=== PATIENT | female | born 1960 | race African-American/Black ===

== ENCOUNTER → 2016-12-02 | Outpatient (CLI) | payer BC ==
[2016-03-10 11:00] VITALS: BP 142/85
[~2016-12-02] MED LIST: LOSA1TAB16 PO; METO25TA9 PO
--- NOTE | 2016-12-03 11:10 | RAD ---
DATE: 12/02/2016 EXAM: DIGITAL SCREEN BILAT W/CAD HISTORY: Routine screening COMPARISON: 11/14/2015 This study was interpreted with the benefit of Computerized Aided Detection (CAD). FINDINGS: Breast Density: SCATTERED The breast parenchyma shows scattered fibroglandular densities. Breast parenchyma level B. There are no dominant suspicious masses, suspicious microcalcifications or evidence of architectural distortion. Nodules identified in the right and left breast in the outer upper quadrant grossly similar to prior exam. IMPRESSION: Benign findings BI-RADS CATEGORY: 2 BENIGN FINDING RECOMMENDED FOLLOW-UP: 12M 12 MONTH FOLLOW-UP PQRS compliance statement: Patient information was entered into a reminder system with a target due date 12/02/2017 for the next mammogram. Mammography is a sensitive method for finding small breast cancers, but it does not detect them all and is not a substitute for careful clinical examination. A negative mammogram does not negate a clinically suspicious finding and should not result in delay in biopsying a clinically suspicious abnormality. "Our facility is accredited by the [employer] Mammography [employer]."
== END | disposition home or self-care (01) ==
LOC: MAMMO 08:51
PROVIDERS: ATTEND Obstetrics & Gynecology
DX: Z12.31 Encounter for screening mammogram for malignant neoplasm of breast (principal)
CPT/HCPCS: G0202; 77067

== ENCOUNTER → 2017-07-03 | Outpatient (CLI) | payer BC ==
[2016-03-10 11:00] VITALS: BP 142/85
[~2017-07-03] MED LIST changes: +GADOBUTROL 10 MMOL/10 ML VIAL IV ONE; -LOSA1TAB16 PO; +LOSA1TAB19 PO; +METO-239 PO; -METO25TA9 PO
--- NOTE | 2017-07-03 10:15 | KCIC ---
MRI neck without and with contrast HISTORY: Soft tissue mass versus swelling for 2 months TECHNIQUE: Multiplanar, multi sequential pre and postcontrast MR imaging was performed of the neck. Contrast: 9 cc Gadavist COMPARISON: None FINDINGS: There is motion degradation. Markers were placed at site of concern, located posteriorly at the mid to inferior cervical levels. Underlying the markers, there is more exuberant fat not associated with discrete nodular enhancement. Discrete margins are not confidently identified on the axial images, suggestive of possible capsule as seen on the sagittal images with more localized focus of fat up to 2.1 cm AP by 2.9 cm cc. Note is made of medial deviation of the carotid arteries in the neck bilaterally greater on the right into the retropharyngeal region, most notable on the right at the C1-C2 through C5 levels, indentation upon the posterior right pharynx. Submandibular glands are symmetric in appearance. No significantly enlarged nodes are identified of the visualized, largest left lobe level 2 node 0.8 cm short axis dimension. IMPRESSION: 1. Area of concern posteriorly of the neck corresponds with area of more exuberant fat, possible partially encapsulated lipoma although difficult to identify margins throughout circumference. There is no nodular enhancement in this region. 2. There is medial deviation of the carotid arteries in the neck bilaterally greater on the right, indentation upon the posterior right pharynx. Electronically signed by: Cheng Trinh MD (07/03/2017 10:12 AM) [id number]
== END | disposition home or self-care (01) ==
LOC: KCIC MRI 07:58
PROVIDERS: ATTEND Specialist
DX: R22.1 Localized swelling, mass and lump, neck (principal)
CPT/HCPCS: 70543; A9585

== ENCOUNTER → 2017-07-17 | Day surgery (SDC) | payer BC ==
[~2017-07-17] MED LIST changes: +DEXAMETHASONE SOD PHOS 20 MG/5 ML VIAL.; -GADOBUTROL 10 MMOL/10 ML VIAL IV ONE; +GLYCOPYRROLATE 1 MG/5 ML VIAL.; +HYDROcodone/APAP 5/325MG 1 TAB TABLET PO; +HYDROmorphone 2 MG/ML VIAL IV; +LIDOCAINE 1% PF 2 ML VIAL. ID; +LIDOCAINE 1% PF 5 ML VIAL.; -LOSA1TAB19 PO; -METO-239 PO; +MORPHINE SULFATE 2 MG/ML DISP.SYRIN. IV; +NEOSTIGMINE METHYLSULFATE 5 MG/5 ML SYRINGE.; +ONDANSETRON PF 4 MG/2 ML VIAL.; +PROCHLORPERAZINE 10 MG/2 ML VIAL. IV; +PROPOFOL 20 ML IV; +ROCURONIUM 50 MG/5 ML VIAL.; +SEVOFLURANE 61 TO 120 MINUTES. IH; +fentaNYL PF VIAL 100 MCG/2 ML VIAL; +fentaNYL PF VIAL 100 MCG/2 ML VIAL IV; +fentaNYL PF VIAL 250 MCG/5 ML VIAL
[2017-07-17] MEDS: IV RINGERS,LACTATED 1000ML 1,000 ML IV (09:17)
[2017-07-17 09:19] LABS: ADD MAN DIFF? NO
[2017-07-17 09:25] LABS: BASO % 1 % (0-3); EOS % 2 % (0-3); HEMATOCRIT 43.4 % (36.0-47.0); HEMOGLOBIN 14.3 g/dL (12.0-15.5); LYMPH # 2.1 x10^3/uL (1.0-4.8); LYMPH % 35 % (24-48); MEAN CORPUSCULAR HEMOGLOBIN 29 pg (25-35); MEAN CORPUSCULAR HGB CONC 33 g/dL (31-37); MEAN CORPUSCULAR VOLUME 87 fL (79-100); MONO % 8 % (0-9); NEUT % 54 % (31-73); PLATELET COUNT 297 x10^3/uL (140-400); RED BLOOD COUNT 4.99 x10^6/uL (3.50-5.40); RED CELL DISTRIBUTION WIDTH 14.6 % (11.5-14.5); WHITE BLOOD COUNT 6.1 x10^3/uL (4.0-11.0)
[2017-07-17 09:49] LABS: ANION GAP 9 (6-14); BLOOD UREA NITROGEN 16 mg/dL (7-20); BUN/CREATININE RATIO 16 (6-20); CALCIUM 9.1 mg/dL (8.5-10.1); CARBON DIOXIDE 27 mmol/L (21-32); CHLORIDE 103 mmol/L (98-107); GFR 68.9; GLUCOSE 116 mg/dL (70-99); SODIUM 139 mmol/L (136-145)
[2017-07-17 09:55] LABS: ALBUMIN/GLOBULIN RATIO 0.9 (1.0-1.7); ALK PHOS 55 U/L (46-116); ALT (SGPT) 24 U/L (14-59); AST (SGOT) 30 U/L (15-37); TOTAL BILIRUBIN 0.6 mg/dL (0.2-1.0); TOTAL PROTEIN 8.4 g/dL (6.4-8.2)
[2017-07-17] MEDS: SCOPOLAMINE 1.5MG PATCH. TD (10:00)
[2017-07-17] MEDS: fentaNYL PF VIAL 100 MCG/2 ML VIAL IV (13:03)
[2017-07-17] MEDS: ONDANSETRON PF 4 MG/2 ML VIAL. IV (13:56)
== END | disposition home or self-care (01) ==
LOC: SURG 08:39
DX: D21.0 Benign neoplasm of connective and other soft tissue of head, face and neck (principal); I10 Essential (primary) hypertension; Z79.899 Other long term (current) drug therapy
CPT/HCPCS: 21554; 36415; 80053; 85025; 85610; 88304; J1100; J2405; J2704; J2710; J3010; J3490

== ENCOUNTER → 2018-01-08 | Outpatient (CLI) | payer BC | END | disposition home or self-care (01) | LOC: MAMMO 13:30 | DX: Z12.31 Encounter for screening mammogram for malignant neoplasm of breast (principal) | CPT/HCPCS: 77067 ==

== ENCOUNTER → 2019-01-20 | Outpatient (CLI) | payer BC ==
[2017-07-17 13:50] VITALS: BP 115/68
[~2019-01-20] MED LIST changes: -DEXAMETHASONE SOD PHOS 20 MG/5 ML VIAL.; -GLYCOPYRROLATE 1 MG/5 ML VIAL.; +HYDR-2761 PO; -HYDROcodone/APAP 5/325MG 1 TAB TABLET PO; -HYDROmorphone 2 MG/ML VIAL IV; -LIDOCAINE 1% PF 2 ML VIAL. ID; -LIDOCAINE 1% PF 5 ML VIAL.; +LOSA1TAB19 PO; +METO-239 PO; -MORPHINE SULFATE 2 MG/ML DISP.SYRIN. IV; -NEOSTIGMINE METHYLSULFATE 5 MG/5 ML SYRINGE.; -ONDANSETRON PF 4 MG/2 ML VIAL.; -PROCHLORPERAZINE 10 MG/2 ML VIAL. IV; -PROPOFOL 20 ML IV; -ROCURONIUM 50 MG/5 ML VIAL.; -SEVOFLURANE 61 TO 120 MINUTES. IH; -fentaNYL PF VIAL 100 MCG/2 ML VIAL; -fentaNYL PF VIAL 100 MCG/2 ML VIAL IV; -fentaNYL PF VIAL 250 MCG/5 ML VIAL
--- NOTE | 2019-01-20 10:33 | RAD ---
DATE: 01/20/2019 EXAM: MAMMO HAYLEE SCREENING BILATERAL HISTORY: Routine screening COMPARISON: 11/14/2015, 12/02/2016, and 01/08/2018 mammographic exams This study was interpreted with the benefit of Computerized Aided Detection (CAD). Breast Density: SCATTERED The breast parenchyma shows scattered fibroglandular densities. Breast parenchyma level B. FINDINGS: No dominant mass. No suspicious calcifications or distortion. Small mass at the left inner breast is stable. Benign-appearing lymph nodes again seen. IMPRESSION: Stable BI-RADS CATEGORY: 1 NEGATIVE RECOMMENDED FOLLOW-UP: 12M 12 MONTH FOLLOW-UP PQRS compliance statement: Patient information was entered into a reminder system with a target due date in one year for the next mammogram. Mammography is a sensitive method for finding small breast cancers, but it does not detect them all and is not a substitute for careful clinical examination. A negative mammogram does not negate a clinically suspicious finding and should not result in delay in biopsying a clinically suspicious abnormality. "Our facility is accredited by the [employer] Mammography [employer]."
== END | disposition home or self-care (01) ==
LOC: MAMMO 08:56
PROVIDERS: ATTEND Obstetrics & Gynecology
DX: Z12.31 Encounter for screening mammogram for malignant neoplasm of breast (principal); N63.20 Unspecified lump in the left breast, unspecified quadrant
CPT/HCPCS: 77063; 77067

== ENCOUNTER → 2020-02-22 | Outpatient (CLI) | payer BC ==
[2017-07-17 13:50] VITALS: BP 115/68
--- NOTE | 2020-02-23 16:37 | RAD ---
DATE: 02/22/2020 2:20 PM EXAM: MAMMO HAYLEE SCREENING BILATERAL HISTORY: Screening COMPARISON: 01/20/2019 Bilateral CC and MLO views of the breasts were performed. Bilateral breast tomosynthesis was performed in CC and MLO projections. This study was interpreted with the benefit of Computerized Aided Detection (CAD). FINDINGS: Breast Density: SCATTERED The breast parenchyma shows scattered fibroglandular densities. Breast parenchyma level B No suspicious masses, microcalcifications or architectural distortion is present to suggest malignancy in either breast. The visualized axillae are unremarkable. IMPRESSION: No mammographic evidence of malignancy. BI-RADS CATEGORY: 1 NEGATIVE RECOMMENDED FOLLOW-UP: 12M 12 MONTH FOLLOW-UP Annual screening mammography is recommended, unless clinically indicated sooner based on symptoms or change in physical exam. PQRS compliance statement: Patient information was entered into a reminder system with a target due date for the next mammogram. Mammography is a sensitive method for finding small breast cancers, but it does not detect them all and is not a substitute for careful clinical examination. A negative mammogram does not negate a clinically suspicious finding and should not result in delay in biopsying a clinically suspicious abnormality. "Our facility is accredited by the [employer] Mammography [employer]."
== END | disposition home or self-care (01) ==
LOC: MAMMO 14:11
PROVIDERS: ATTEND Obstetrics & Gynecology
DX: Z12.31 Encounter for screening mammogram for malignant neoplasm of breast (principal)
CPT/HCPCS: 77063; 77067

== ENCOUNTER → 2021-02-27 | Outpatient (CLI) | payer BC ==
[2017-07-17 13:50] VITALS: BP 115/68
[~2021-02-27] MED LIST changes: +METO25TA2 PO
--- NOTE | 2021-02-27 11:45 | RAD ---
EXAM: BILATERAL DIGITAL 3D SCREENING MAMMOGRAPHY. HISTORY: Routine mammographic screening. TECHNIQUE: Bilateral digital 3D and tomographic images were obtained in CC and MLO projections. Compu ter-aided detection was applied. COMPARISON: 02/22/2020, 01/20/2019. COMPOSITION: B. There are scattered areas of fibroglandular density. FINDINGS: There are no suspicious masses, microcalcifications or architectural distortion. The parenc hymal pattern is stable. Multiple small circumscribed nodules are stable. BI-RADS CATEGORY 2: Benign. RECOMMENDATION: 1. Routine screening mammography in one year. If mammography demonstrates dense breast tissue (heterogenously dense or extremely dense, category C or D), which could hide abnormalities, and if other risk factors for breast cancer have been identifi ed, supplemental screening tests that may be suggested by the ordering physician may be of benefit. D ense breast tissue, in and of itself, is a relatively common condition. Therefore, this information i s not provided to cause undue concern, but rather to raise awareness and to promote discussion with t he referring physician regarding the presence of other risk factors, in addition to dense breast tiss ue. The results of this mammography examination is provided to the patient and referring physician. T he patient should contact their referring physician if any questions or concerns exist regarding this report. PQRS compliance statement - Patient information was entered into a reminder system with a target due date for the next mammogram. "Our facility is accredited by the [employer]ammography [employer]." Electronically signed by: Rex Brooks MD (02/27/2021 11:42 AM) [id number]
== END ==
LOC: MAMMO 09:01
PROVIDERS: ATTEND Internal Medicine
DX: Z12.31 Encounter for screening mammogram for malignant neoplasm of breast (principal)
CPT/HCPCS: 77063; 77067

== ENCOUNTER → 2021-04-16 | Day surgery (SDC) | payer BC ==
[~2021-04-16] VITALS: Ht 170.2 cm; Wt 87.0 kg
[~2021-04-16] MED LIST changes: +IV RINGERS,LACTATED 1000ML 1,000 ML IV SCH; +LIDOCAINE 2% PF 5 ML VIAL. ONE; +PROPOFOL 10 MG/ML (20ML) VIAL. IV ONE; +ePHEDrine PF IN SALINE 50 MG/10 ML SYRINGE. IV ONE
[2021-04-16 12:23] VITALS: BP 112/66
--- NOTE | 2021-04-16 12:59 | PDOC1 ---
History and Physical Date of Admission Date of Admission DATE: 04/16/21 TIME: 12:53 Identification/Chief Complaint Chief Complaint Colon cancer screening Source Source: Patient History of Present Illness History of Present Illness 60 y/o female here for colon cancer screening. Last colonoscopy ~10 years ago at [facility] normal historically. Denies pain, diarrhea, constipation or overt GI bleeding. Wt/appetite OK. No N, V. GIFH negative. No heartburn, dysphagia, PUD, GB, liver or pancreatic history. No tobacco use. Occasional modest alcohol use. Past Medical History Cardiovascular: HTN Endocrine: Diabetes Past Surgical History Past Surgical History: Other (Bladder resuspension x 2.) Family History Family History: Hypertension, Other (Lymphoma) Social History Smoke: No ALCOHOL: occassional Drugs: None Current Medications Current Medications Current Medications Ringer's Solution 1,000 ml @ 50 mls/hr Q20H IV Last administered on 04/16/21at 12:34; Start 04/16/21 at 07:00; Stop 04/16/21 at 18:59 Propofol (Diprivan) 200 mg STK-MED ONCE IV ; Start 04/16/21 at 12:53; Stop 04/16/21 at 12:53; Status DC Lidocaine HCl (Lidocaine Pf 2% Vial) 5 ml STK-MED ONCE .ROUTE ; Start 04/16/21 at 12:53; Stop 04/16/21 at 12:53; Status DC Active Scripts Active Reported Toprol Xl (Metoprolol Succinate) 25 Mg Tab.er.24h 50 Mg PO DAILY Losartan-Hctz 50-12.5 Mg Tab (Losartan/Hydrochlorothiazide) 1 Each Tablet 1 Tab PO DAILY Allergies Allergies: Coded Allergies: No Known Drug Allergies (Unverified , 07/17/17) ROS Review of System Otherwise negative. Physical Exam General: Alert, Oriented X3, Cooperative, No acute distress HEENT: Atraumatic, EOMI Lungs: Clear to auscultation, Normal air movement Heart: S1S2, RRR, no gallops, no murmurs Abdomen: Normal bowel sounds, Soft, No tenderness, No hepatosplenomegaly, No masses Rectal Exam: deferred (to time of procedure) Extremities: No cyanosis, No edema Skin: No significant lesion Neuro: Normal speech, Strength at 5/5 X4 ext, Normal tone, Sensation intact, Cranial nerves 3-12 NL, Reflexes 2+ Psych/Mental Status: Mental status NL, Mood NL Vitals Vitals Vital Signs Date Time Temp Pulse Resp B/P (MAP) Pulse Ox O2 Delivery O2 Flow Rate FiO2 04/16/21 12:23 97.9 72 20 93 97.9 VTE Prophylaxis Ordered VTE Prophylaxis Devices: No VTE Pharmacological Prophylaxi: No Assessment/Plan Assessment/Plan IMP: At average risk for colon cancer; screen. PLAN: Colonoscopy. PATRICA SAHU MD Apr 16, 2021 12:59
--- NOTE | 2021-04-16 13:20 | PDOC4 ---
PROCEDURE Procedure Colonoscopy Indication: Screening Meds: per anesthesia Findings: ALEJANDRO: normal. --'Scope advanced to cecum. Prep adequate. Mucosa normal. No polyps, tics, etc. Small IH's on retroflex. On withdrawal, short mucosal rent at ~rectosigmoid. Did not appear to be free perforation. Nessa. well. IMP: IH's, otherwise normal exam. Mucosal rent, r/o perf. PLAN: CT stat. If OK, home on usual meds and diet. Repeat exam in 10 years. PATRICA SAHU MD Apr 16, 2021 13:20
[2021-04-16 13:58] VITALS: BP 118/73
--- NOTE | 2021-04-16 14:14 | RAD ---
Exam: CT abdomen/pelvis without intravenous contrast Indication: Mucosal rent after colonoscopy. Rule out perforation. Comparison: None Technique: Helical CT imaging performed of the abdomen and pelvis without the use of intravenous cont rast. Sagittal and coronal reformats were obtained. One or more of the following individualized dose reduction techniques were utilized for this examinat ion: 1. Automated exposure control 2. Adjustment of the mA and/or kV according to patient size 3. Use of iterative reconstruction technique. Findings: Inherently limited evaluation without intravenous contrast. Lower chest: 3 mm nodule in the right lower lobe. Mild atelectasis in the lingula. Heart is normal in size. Liver: Normal noncontrast appearance of the liver. Gallbladder/Biliary Tree: Normal. Pancreas: Normal. Spleen: Normal. Adrenal Glands: Normal Kidneys/Ureters/Bladder: Normal. No hydronephrosis or nephrolithiasis. Reproductive Organs: Uterus is lobulated with multiple calcified and noncalcified masses. Stomach, small bowel, and colon: There is a small hiatal hernia. No small bowel obstruction. The appe ndix is normal. The colon is unremarkable. Vasculature: No aortic aneurysm. Lymph Nodes: No lymphadenopathy. Peritoneum and retroperitoneum: No pneumoperitoneum or pneumatosis. Bones: No acute osseous abnormality. There is mild degenerative joint disease of the hips. Impression: 1. No evidence of bowel perforation or other acute abnormality. 2. Tiny hiatal hernia. 3. Leiomyomatous uterus. 4. 3 mm nodule in the right lower lobe, nonspecific. No follow-up is indicated in a low risk patient . If the patient is high risk for lung cancer, an optional follow-up CT could be obtained in 12 month s. Results regarding no evidence of bowel perforation was discussed by Dr. Chao with the ordering ph ysician at the time of exam. Electronically signed by: Saira Chao MD (04/16/2021 2:11 PM) [id number]
== END | disposition home or self-care (01) ==
LOC: ENDOS 11:57
PROVIDERS: ATTEND Internal Medicine Gastroenterology
DX: Z12.11 Encounter for screening for malignant neoplasm of colon (principal); K64.0 First degree hemorrhoids; K63.89 Other specified diseases of intestine; I10 Essential (primary) hypertension; E11.9 Type 2 diabetes mellitus without complications; Z79.899 Other long term (current) drug therapy; Z98.890 Other specified postprocedural states; Z72.89 Other problems related to lifestyle; Z82.49 Family history of ischemic heart disease and other diseases of the circulatory system
CPT/HCPCS: 45378; 74176; J2704

== ENCOUNTER → 2021-11-01 | Outpatient (CLI) | payer BC ==
[2021-04-16 13:58] VITALS: BP 118/73
[~2021-11-01] MED LIST changes: -IV RINGERS,LACTATED 1000ML 1,000 ML IV SCH; -LIDOCAINE 2% PF 5 ML VIAL. ONE; -PROPOFOL 10 MG/ML (20ML) VIAL. IV ONE; -ePHEDrine PF IN SALINE 50 MG/10 ML SYRINGE. IV ONE
--- NOTE | 2021-11-01 16:48 | KCIC ---
EXAM: XR KNEE_RT 1-2 VIEWS 11/01/2021 1:52 PM CLINICAL INDICATION: Right knee pain since June, recent re-aggravation. Fluid drained from knee today. COMPARISON: None TECHNIQUE: 2 views of the right knee FINDINGS: No acute fracture or malalignment. Mild to moderate lateral compartment narrowing. There a re tricompartmental osteophytes. Small joint effusion. 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 Small join t effusion. Electronically signed by: Saira Chao MD (11/01/2021 4:46 PM) [id number]
== END ==
LOC: KCIC 13:48
PROVIDERS: ATTEND Internal Medicine Rheumatology
DX: M17.11 Unilateral primary osteoarthritis, right knee (principal); M25.861 Other specified joint disorders, right knee; M25.761 Osteophyte, right knee
CPT/HCPCS: 73560